=== PATIENT | female | born 1945 | race Caucasian/White ===

== ENCOUNTER 2016-07-28 10:20 | Emergency (ER) | payer OTHER ==
[~2016-07-28] VITALS: Ht 160 cm; Wt 60.0 kg
[~2016-07-28 10:20] MED LIST: CALCCHW25 PO; DIPH25 PO; IBUP-232 PO; MAGN400T PO; MULT-65 PO; OMEP20TA39 PO; PERC5TAB12 PO; TEMA15 PO; TRAZ150T75 PO; ZOFR4TAB3 SL
[2016-07-28 10:21] VITALS: BP 119/87; PULSE 112; RESP 12; TEMP 98.6; O2SAT 99
[2016-07-28] MEDS ORDERED: SERO25TA PO (13:08)
[2016-07-28] MEDS ORDERED: BUPR150XL PO (13:10)
[2016-07-28] MEDS ORDERED: predniSONE 20 MG TAB PO ONE (13:30)
[2016-07-28] MEDS ORDERED: RESP: ALBUTEROL 2.5 MG/3 ML NEB (SCH) INH ONE ×2 (13:30→14:45)
--- NOTE | 2016-07-28 13:35 | PD ---
HPI Chief Complaint: Cold / Flu Symptoms Time Seen by Provider: 13:27 Travel History International Travel<30 days: No Contact w/Intl Traveler<30days: No Traveled to known affect area: No History of Present Illness HPI 71-year-old female presents to the emergency Department with complaint of nasal congestion and cough that started on Tuesday. Reports chest discomfort with coughing. Denies chest pain, heart palpitations. Denies shortness of breath. Denies hemoptysis. Denies history of DVT or PE. Denies fever, chills, nausea , vomiting. Says her symptoms are consistent with past episodes of bronchitis. Has tried [id number] medications with no relief of symptoms. Dr. Churchill is her primary care provider. Allergies to codeine and morphine. Denies history of asthma. Denies tobacco use. Denies other significant past medical history. No other modifying factors or associated signs and symptoms. PFSH Past Medical History Arthritis: Yes (BOTH KNEES AND BACK,OSTEOPOROSIS, SCOLIOSIS ) Anxiety: Yes (WITH PANIC ATTACKS) Depression: Yes High Cholesterol: Yes Diabetes: No Diminished Hearing: No GERD: Yes Genitourinary: Yes (HX OF KIDNEY INFECTIONS) Insomnia: Yes Musculoskeletal: Yes (CHRONIC BACK PAIN) Psychiatric: Yes Respiratory: Yes (CURRENTLY ON ANTIBIOTICS FOR URI) Immunizations Current: No Migraines: Yes Sleep Apnea: Yes (PT STATES " SOMETIMES I USE IT AND SOMETIMES NOT") Menopausal: Yes : 0 Past Surgical History Thoracic Surgery: Yes (BACK SURGERY OCTOBER 2013) Tonsillectomy: Yes Social History Alcohol Use: Yes (daily) Tobacco Use: No Substance Use: No Allergies-Medications (Allergen,Severity, Reaction): Coded Allergies: Codeine (Verified Allergy, Severe, Nausea/Vomiting, 07/28/16) Morphine (Verified Allergy, Severe, 07/28/16) Reported Meds & Prescriptions Reported Meds & Active Scripts Active Nasonex Nasal [place] (Mometasone Furoate) 50 Mcg/Act Naspr 2 [place] EACH NARE DAILY PRN Doxycycline Hyclate 100 Mg Cap 100 Mg PO BID 10 Days Tessalon Perles (Benzonatate) 100 Mg Cap 100 Mg PO TID PRN Deltasone (Prednisone) 20 Mg Tab 40 Mg PO DAILY 4 Days start 07/29/2016 Proair Hfa 8.5 GM Inh (Albuterol Sulfate) 90 Mcg/Act Aer 2 Puff INH Q4-6H PRN 108 mcg/actuation Reported Wellbutrin Xl 24 HR (Bupropion HCl) 150 Mg Tab 150 Mg PO DAILY Seroquel (Quetiapine Fumarate) 25 Mg Tab 25 Mg PO HS Restoril 15 mg (Temazepam) 15 Mg Cap 1 Cap PO HS Mag-Ox 400 (Magnesium Oxide) 400 Mg Tab 400 Mg PO DAILY 30 Days Calcium + D (Calcium Carbonate/Cholecalciferol) Chw 1 Tab PO DAILY Multi-Vitamin Daily (Multivitamins) Daily Tab 1 Tab PO DAILY Review of Systems Except as stated in HPI: all other systems reviewed are Neg Physical Exam Narrative GENERAL: Well-nourished, well-developed patient, in no acute distress; afebrile , nontoxic appearing but appears like she doesn't feel well SKIN: Warm and dry. No rash. HEAD: Atraumatic. Normocephalic. EYES: Pupils equal and round at 3 mm with brisk reaction. No scleral icterus. No injection or drainage. PERRLA. ENT: Mucosa pink and moist. No erythema or exudates. No uvular edema. No uvular , palatal, or tonsillar deviation. Airway patent. EARS: Bilateral pinnae and external canals appear within normal limits. Bilateral tympanic membranes without erythema, dullness or perforation. NECK: Trachea midline. No lymphadenopathy. CARDIOVASCULAR: Regular rate and rhythm at approximately 90 beats a minute. No murmur appreciated. RESPIRATORY: No accessory muscle use. Decreased to bilateral bases to auscultation. Breath sounds equal bilaterally. No retractions or tachypnea. No audible wheezing. GASTROINTESTINAL: Abdomen soft, non-tender, nondistended. Hepatic and splenic margins not palpable. Bowel sounds are active 4 quadrants. MUSCULOSKELETAL: No obvious deformities. No clubbing. No cyanosis. No edema. NEUROLOGICAL: Awake and alert. Oriented 3. No obvious cranial nerve deficits. Motor grossly within normal limits. Normal speech. Moves all extremities. 5/5 strength to all extremities. PSYCHIATRIC: Appropriate mood and affect; insight and judgment normal. Data Data Last Documented VS Vital Signs Date Time Temp Pulse Resp B/P Pulse Ox O2 Delivery O2 Flow Rate FiO2 07/28/16 14:43 92 96 07/28/16 10:21 98.6 12 119/87 Room Air Orders Chest, Single Ap (07/28/16 13:25) Prednisone (Deltasone) (07/28/16 13:30) Albuterol Neb (Albuterol Neb) (07/28/16 13:30) Influenzae A/B Antigen (07/28/16 13:25) Albuterol Neb (Albuterol Neb) (07/28/16 14:45) [facility] Medical Decision Making Medical Screen Exam Complete: Yes Emergency Medical Condition: Yes Medical Record Reviewed: Yes Differential Diagnosis Bronchitis, pneumonia, influenza, viral illness, less likely PE Narrative Course 71-year-old female with cough and cold symptoms since Tuesday. Patient is afebrile. She is nontoxic-appearing but appears like she doesn't feel well. She is in no acute distress and her oxygen saturation is 99% on room air. No retractions or tachypnea. Denies history of asthma. Denies tobacco use. Denies history of DVT or PE. Denies hemoptysis. Chest x-ray ordered. Albuterol nebulizer and Deltasone ordered. Influenza ordered. 1435: Chest x-ray concludes no acute cardiopulmonary findings; concludes displaced clavicular fracture. I reviewed the patient's chart and the patient had left clavicular fracture in February 2016; she denies any new or recent injury. On reexamination the patient reports some improvement in symptoms. She denies chest discomfort or shortness of breath. She is requesting another albuterol nebulizer treatment. Lungs are clear and equal throughout. Heart rate rechecked 92 bpm. Oxygen saturation 96%. Second Albuterol nebulizer treatment ordered. 1637: Influenza negative. Doxycycline, pro-air inhaler, Tessalon Perles, Deltasone prescribed for home. Patient feels comfortable going home and agrees with treatment plan. Patient is medically cleared and stable for discharge. Discussed reasons to return to the emergency department. Instructed patient to follow up with primary care provider. Patient agrees with treatment plan. The patients vital signs are stable and the patient is stable for outpatient follow- up and treatment. Patient discharged home, stable and in no acute distress. Diagnosis Primary Impression: Bronchitis Referrals: Primary Care Physician Patient Instructions: Acute Bronchitis (ED), General Instructions Departure Forms: Tests/Procedures, Work Release Enter return to work date: Jul 31, 2016 Additional Instructions: Use Albuterol inhaler as prescribed Take oral steroids as prescribed and complete full course Use Tessalon Perles as prescribed to decrease coughing spasms Coun-joe-[id number] decongestants or antihistamines as directed and as needed for symptom management Your cough can last 4-6 weeks Drink plenty of fluids to prevent dehydration Use hot air humidifier to decrease cough exacerbation Turn off ceiling fans and sleep with head of bed elevated Avoid triggers such as second hand smoke, dust, known allergens Follow-up with your primary care provider Return to the emergency department immediately with worsening of symptoms Med/Other Pt SpecificInfo: Prescription(s) given Scripts Mometasone Nasal [place] (Nasonex Nasal [place])50 Mcg/Act Naspr2 [place] EACH NARE DAILY PRN (NASAL CONGESTION) #1 BOTTLE Ref 0 Prov:Aretha GregoryP 07/28/16 Doxycycline Hyclate 100 Mg Puf164 Mg PO BID 10 Days Ref 0 Prov:Aretha Gregory 07/28/16 Benzonatate (Tessalon Perles)100 Mg Dpn374 Mg PO TID PRN (COUGH) #20 CAP Ref 0 Prov:Aretha Gregory 07/28/16 Prednisone (Deltasone)20 Mg Tab40 Mg PO DAILY 4 Days Ref 0 start 07/29/2016 Prov:Aretha GregoryP 07/28/16 Albuterol 8.5 GM Inh (Proair Hfa 8.5 GM Inh)90 Mcg/Act Aer2 Puff INH Q4-6H PRN ( SOB/WHEEZING) #1 INHALER Ref 0 108 mcg/actuation Prov:Aretha Gregory 07/28/16 Disposition: 01 DISCHARGE HOME Condition: Stable Aretha Gregory Jul 28, 2016 13:35
--- NOTE | 2016-07-28 14:13 | RADRPT ---
EXAM DATE/TIME: 07/28/2016 13:40 [facility] COMPARISON: CLAVICLE LEFT, March 01, 2016, 12:30. INDICATIONS : Cough since yesterday. MEDICAL HISTORY : None. SURGICAL HISTORY : None. ENCOUNTER: Initial ACUITY: 2 days PAIN SCORE: 0/10 LOCATION: Bilateral chest FINDINGS: A single view of the chest demonstrates the lungs to be symmetrically aerated without evidence of mas s, infiltrate or effusion. The cardiomediastinal contours are unremarkable. Demonstrated displaced f racture of the left clavicle. CONCLUSION: No acute cardiopulmonary findings. Displaced left clavicular fracture. Syed Taylor MD on July 28, 2016 at 14:02 Board Certified Radiologist. This report was verified electronically.
[2016-07-28] MEDS ORDERED: BENZ100 PO (14:28)
[2016-07-28] MEDS ORDERED: MOME17I EACH NARE (14:28)
[2016-07-28] MEDS ORDERED: DOXY100C PO (14:28)
[2016-07-28] MEDS ORDERED: PRED-503 PO (14:28)
[2016-07-28] MEDS ORDERED: ALBUAER3 INH (14:28)
[2016-07-28 14:43] VITALS: PULSE 92; O2SAT 96
== END 2016-07-28 16:58 | disposition home or self-care (01) ==
LOC: NEPB 10:20
DX: J40 Bronchitis, not specified as acute or chronic (principal); Z88.5 Allergy status to narcotic agent
CPT/HCPCS: 71010; 87804; 94640; 94664; 99283; J7512; J7613

== ENCOUNTER 2017-04-26 10:38 | Emergency (ER) | payer OTHER ==
[~2017-04-26] VITALS: Ht 167.6 cm; Wt 50.0 kg
[~2017-04-26 10:38] MED LIST changes: -CALCCHW25 PO; -DIPH25 PO; -IBUP-232 PO; +KETO10 PO; -MAGN400T PO; +MOME17I EACH NARE; -MULT-65 PO; -OMEP20TA39 PO; +OXYC1TAB63 PO; -PERC5TAB12 PO; +PROT40TA PO; +SERO25TA PO; -TEMA15 PO; -TRAZ150T75 PO; -ZOFR4TAB3 SL
[2017-04-26 11:06] VITALS: BP 96/68; PULSE 71; RESP 15; TEMP 98; O2SAT 99
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
[2017-04-26] MEDS ORDERED: IBUP1TAB7 PO (12:28)
[2017-04-26] MEDS ORDERED: PROT40TA PO (12:28)
[2017-04-26] MEDS ORDERED: MILKSUS PO (12:28)
[2017-04-26] MEDS ORDERED: SERO50TA PO (12:28)
[2017-04-26] MEDS ORDERED: NEUR100C PO (12:28)
[2017-04-26] MEDS ORDERED: COLA100C5 PO (12:28)
--- NOTE | 2017-04-26 13:07 | PD ---
Physical Exam Date Seen by Provider: Apr 26, 2017 Time Seen by Provider: 13:06 Narrative I, Dr. Bella, have reviewed the advance practice practitioner's documentation and am in agreement, met with the patient face to face, made the diagnosis, and the medical decision making was done by me. *My assessment and Findings: Patient seen and evaluated with PA, please see PA note for further details. She is here for worsening in back pains which are lower and radiates to the right leg and thigh area as well as the right buttocks area, worse with movements. She has no incontinence, fevers, and denies any injuries or other issues. Last 24 hours Impressions Lumbar Spine MRI 04/26/17 0000 Signed Impressions: Service Date/Time: Wednesday, April 26, 2017 14:05 - CONCLUSION: 1. No acute lumbar spine abnormality is identified. There is an old compression deformity of L3 which has undergone prior vertebroplasty. 2. There are degenerative changes at multiple levels, as above. However, no spinal canal stenosis is present. 3. Abnormal bone marrow edema within the sacrum bilaterally. This pattern is suspicious for sacral insufficiency fracture. 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
[2017-04-26 15:00] VITALS: BP 100/65; PULSE 68; RESP 15; O2SAT 97
--- NOTE | 2017-04-26 15:06 | RADRPT ---
EXAM DATE/TIME: 04/26/2017 14:05 [facility] COMPARISON: CT LUMBAR SPINE W/O CONTRAST, April 15, 2017, 21:48. INDICATIONS : Low back pain. MEDICAL HISTORY : Steroid injections. SURGICAL HISTORY : Kyphoplasty. ENCOUNTER: Initial ACUITY: 2 day PAIN SCORE: 5/10 LOCATION: back TECHNIQUE: Multiplanar multisequence MRI of the lumbar spine was performed without contrast. FINDINGS: The most caudal appearing lumbar vertebra is numbered as L5. VERTEBRAE: There is mild endplate edema at T11-T12 and T12-L1. Otherwise, bone marrow signal is within normal li mits. Low T1 and T2 signal within the L2 and L3 vertebral bodies represents cement material from prio r vertebroplasty. There is height loss of the superior endplate of L3. Otherwise, no acute compressio n fracture is present. There is no anterolisthesis or retrolisthesis. Mild levoscoliosis is present. CONUS: Normal level and configuration. T12-L1: Disc desiccation with mild decreased disc height and a mild diffuse disc bulge. No canal stenosis or neural foraminal stenosis is present. L1-L2: Disc desiccation. No herniation, canal stenosis, or neural foraminal stenosis is present. L2-L3: Disc desiccation with a mild diffuse disc bulge and moderate facet hypertrophy. No spinal canal steno sis is present. There is mild right neural foraminal narrowing. Left neural foramen is within normal limits. L3-L4: There is mild to moderate bilateral facet hypertrophy. No disc herniation, canal stenosis, or neural foraminal stenosis is present. L4-L5: Moderate bilateral facet hypertrophy, left greater than right. No disc herniation, canal stenosis, or neural foraminal stenosis. L5-S1: Mild diffuse disc bulge. No canal stenosis or neural foraminal stenosis is present. There is moderate facet hypertrophy. There is increased T2 signal within the sacrum bilaterally. CONCLUSION: 1. No acute lumbar spine abnormality is identified. There is an old compression deformity of L3 which has undergone prior vertebroplasty. 2. There are degenerative changes at multiple levels, as above. However, no spinal canal stenosis is present. 3. Abnormal bone marrow edema within the sacrum bilaterally. This pattern is suspicious for sacral in sufficiency fracture. Ilia Nunez MD on April 26, 2017 at 14:59 Board Certified Radiologist. This report was verified electronically.
[2017-04-26] MEDS ORDERED: ACETAMINOPHEN/HYDROcodone 325 MG/5 MG TAB PO ONE (15:45)
== END 2017-04-26 16:54 ==
LOC: NEPE 10:38
DX: M54.16 Radiculopathy, lumbar region (principal); M47.9 Spondylosis, unspecified; S39.012A Strain of muscle, fascia and tendon of lower back, initial encounter; K59.00 Constipation, unspecified; M81.0 Age-related osteoporosis without current pathological fracture; M41.9 Scoliosis, unspecified; K21.9 Gastro-esophageal reflux disease without esophagitis; E78.00 Pure hypercholesterolemia, unspecified; V18.4XXA Pedal cycle driver injured in noncollision transport accident in traffic accident, initial encounter
CPT/HCPCS: 72148